=== PATIENT | male | born 1990 ===

== ENCOUNTER 2021-12-10 19:59 | Emergency (ER) | payer OTHER ==
[~2021-12-10] VITALS: Ht 182.9 cm; Wt 104.5 kg
[2021-12-10] MEDS ORDERED: OXYCODONE W/ ACETAMINOPHEN 5/325MG TABLET PO ONE (21:00)
[2021-12-11] MEDS ORDERED: IBUPROFEN 800 MG TAB PO ONE (01:45)
[2021-12-11 02:02] VITALS: BP 127/79
== END 2021-12-11 02:06 | disposition home or self-care (01) ==
LOC: ER 19:59
DX: S00.93XA Contusion of unspecified part of head, initial encounter (principal); R10.9 Unspecified abdominal pain; R07.81 Pleurodynia; V89.2XXA Person injured in unspecified motor-vehicle accident, traffic, initial encounter; Y93.89 Activity, other specified; Y92.89 Other specified places as the place of occurrence of the external cause; Y99.8 Other external cause status
CPT/HCPCS: 70450; 71250; 74176